=== PATIENT | female | born 1945 | race Caucasian/White ===

== ENCOUNTER 2017-08-08 12:09 | Inpatient (IN) | payer MEDICARE, OTHER ==
[~2017-08-08] VITALS: Ht 165.1 cm; Wt 49.0 kg
[2017-08-08] MEDS ORDERED: CHOL500050 PO (12:17)
[2017-08-08] MEDS ORDERED: UBID100C13 PO (12:17)
[2017-08-08] MEDS ORDERED: CYCL30DR OP (12:17)
[2017-08-08] MEDS ORDERED: OLAN5TAB3 PO (12:17)
[2017-08-08] MEDS ORDERED: OLAN10TA3 PO (12:17)
[2017-08-08] MEDS ORDERED: ASCO500C18 PO (12:17)
--- NOTE | 2017-08-08 12:25 | NUR ---
Dr Felton at the bedside for MSE.
[2017-08-08] MEDS ORDERED: CARB-93 PO (12:52)
[2017-08-08] MEDS ORDERED: LOPE2TAB25 PO (12:52)
[2017-08-08 13:00] LABS: ETHANOL < 3 MG/DL (0-0)
[2017-08-08 13:01] LABS: ALANINE AMINOTRANSFERASE 16 U/L (14-59); ALKALINE PHOSPHATASE 72 U/L (50-136); ASPARTATE AMINOTRANSFERASE 15 U/L (15-37); BILIRUBIN,DIRECT 0.2 mg/dL (0.0-0.2); BILIRUBIN,TOTAL 0.8 mg/dL (0.2-1.0); CARBON DIOXIDE 28 mmol/L (21-32); CHLORIDE 108 mmol/L (98-107); CREATININE 0.9 mg/dL (0.6-1.3); GLUCOSE 111 mg/dL (74-106); POTASSIUM 4.2 mmol/L (3.5-5.1); TOTAL PROTEIN, SERUM 6.4 g/dL (6.4-8.2); UREA NITROGEN, BLOOD 15 mg/dL (7-18)
[2017-08-08 13:04] LABS: ACETAMINOPHEN < 2.0 ug/mL (10-30)
[2017-08-08 13:07] LABS: BASOPHILS % (AUTO) 0.8 % (0.0-2.0); EOSINOPHILS # (AUTO) 0.2 K/uL (0.0-0.7); EOSINOPHILS % (AUTO) 6.2 % (0.0-7.0); HEMATOCRIT 39.6 % (31.2-41.9); HEMOGLOBIN 13.4 g/dL (10.9-14.3); LYMPHOCYTES # (AUTO) 0.5 K/uL (20.0-40.0); LYMPHOCYTES % (AUTO) 15.8 % (20.5-51.5); MEAN CORPUSCULAR HEMOGLOBIN 29.8 uug (24.7-32.8); MEAN CORPUSCULAR HGB CONC 34 g/dL (32.3-35.6); MEAN CORPUSCULAR VOLUME 88.1 fL (75.5-95.3); MONOCYTES # (AUTO) 0.5 K/uL (2.0-10.0); MONOCYTES % (AUTO) 15.9 % (0.0-11.0); NEUTROPHILS # (AUTO) 1.8 K/uL (1.8-8.9); NEUTROPHILS % (AUTO) 61.3 % (38.5-71.5); PLATELET COUNT (AUTO) 151 K/uL (179-408); RED BLOOD CELL COUNT(AUTO) 4.49 MIL/uL (3.63-4.92)
--- NOTE | 2017-08-08 13:16 | NUR ---
Pt is medically cleared by Dr Felton. Lunch provided, moderate appetite.
[2017-08-08 13:37] LABS: BASOPHILS % (MANUAL) 1 % (0-2); EOSINOPHILS % (MANUAL) 9 % (0-8); LYMPHOCYTES % (MANUAL) 13 % (20-40); MONOCYTES % (MANUAL) 18 % (2-10); NEUTROPHILS % (MANUAL) 59 % (42-75)
--- NOTE | 2017-08-08 15:30 | NUR ---
Patient is resting comfortably in bed with eyes closed, MIAN noted.
[2017-08-08 16:15] VITALS: BP 108/65
[2017-08-08] MEDS ORDERED: MAGNESIUM HYDROXIDE 30 ML LIQUID UDC PO PRN (16:30)
[2017-08-08] MEDS ORDERED: MAG HYDROX/AL HYDROX/SIMETH 30 ML LIQUID UDC PO PRN (16:30)
[2017-08-08] MEDS ORDERED: ACETAMINOPHEN 325 MG TABLET PO PRN (16:30)
[2017-08-08] MEDS ORDERED: LORAZEPAM 1 MG TABLET PO PRN (16:30)
[2017-08-08 16:37] LABS: *BILIRUBIN,URIN NEGATIVE (NEGATIVE); *BLOOD, URINE NEGATIVE (NEGATIVE); *CLARITY,URINE CLEAR (CLEAR); *COLOR,URINE YELLOW (YELLOW); *KETONES,URINE NEGATIVE (NEGATIVE); *PROTEIN,URINE 1+ (NEGATIVE); LEUKOCYTE ESTERASE ,URINE 1+ (NEGATIVE); NITRITE, URINE NEGATIVE (NEGATIVE); UGLUCOSE NEGATIVE (NEGATIVE)
[2017-08-08 17:01] LABS: *AMPHETAMINE, URINE NEGATIVE (NEGATIVE); *BARBITURATE, URINE NEGATIVE (NEGATIVE); *CANNABINOID, URINE NEGATIVE (NEGATIVE); *COCCAINE, URINE NEGATIVE (NEGATIVE); *OPIATE, URINE NEGATIVE (NEGATIVE); *PHENCYCLIDINE SCREEN,URINE NEGATIVE (NEGATIVE)
[2017-08-08 17:04] LABS: BACTERIA,URINE FEW /HPF (NONE SEEN); RBC,URINE 0-3 /HPF (0-3); SQUAMOUS EPITHELIAL CELL,UR FEW /HPF (NONE SEEN); WBC,URINE 0-3 /HPF (0-3)
[2017-08-08 20:00] VITALS: BP 114/69
--- NOTE | 2017-08-08 21:00 | NUR ---
RECEIVED PATIENT IN HER BED AWAKE. SHE WAS NOTED A/O X 2. SHE IS ABLE TO WALK WITH STEADY GAIT AND ABLE TO MAKE HER NEEDS KNOW. POOR INSIGHT NOTED. SHE STATED THAT "THE REASON I AM HERE IS BECAUSE I TOOK VICODIN." SHE WAS NOTED WITH DEPRESSED MOOD, BLUNTED AFFECT. WILL CONTINUE TO MONITOR.
[2017-08-08] MEDS ORDERED: Medication Not On Formulary EA (Cholecalciferol (Vitamin D3) (Vitamin D3 CAPSULE) 50,000 PO SCH (23:45)
[2017-08-09 08:00] VITALS: BP 107/65
[2017-08-09] MEDS: NITROFURANTOIN/NITROFURAN MAC 100 MG CAPSULE PO SCH ×2 (09:55→21:01)
[2017-08-09] MEDS: ASCORBIC ACID 500 MG TABLET PO SCH (09:55)
[2017-08-09] MEDS: CARBIDOPA/LEVODOPA 25-100MG TABLET PO SCH ×3 (09:55→17:25)
--- NOTE | 2017-08-09 10:32 | NUR ---
Firearms Report: Information Technology Security Manager completed and submitted [employer] Firearms Report on 08/09/17.
[2017-08-09] MEDS ORDERED: SULFAMETH/TRIMETH 800/160 MG TABLET PO SCH (11:15)
[2017-08-09 16:00] VITALS: BP 108/72
--- NOTE | 2017-08-09 16:02 | NUR ---
Initial Discharge Instructions: Pt resides at home with her business controller [[place] [address]; [phone]]. Per pt, she would like to return there upon discharge. Spoke with pt's friend, Gideon ([phone]) who would like pt to return home with him as well. SW will speak with pt, family, and MD regarding appropriate discharge plans. SW will form a safe and proper discharge for this patient.
--- NOTE | 2017-08-09 18:17 | NUR ---
patient believes shes going home she made a mistake , pt very dis organized and confused redirectable
[2017-08-09 20:39] VITALS: BP 101/57
--- NOTE | 2017-08-09 21:00 | NUR ---
A FELLOW BY THE NAME TESSY CALLED THE UNIT ASKING IF THE PSYCHIATRIST HAS BEEN IN TO TO SEE THE PATIENT BECAUSE HE WANTS THE PSYCHIATRIST TO CALL HIM. INCIDENTALLY, THE DOCTOR HAD JUST WALKED INTO THE UNIT AND WENT TO SEE THE PT IN HER ROOM. THE CALLER WAS TOLD TO CALL BACK IN TEN MINUTES OR WAIT TO BE CALLED. TESSY CALLED BACK AND WAS PUT ON HOLD, WHILE THE STAFF WENT TO THE PATIENT TO OBTAIN HER CONSENT FOR THE DOCTOR TO TALK TO TESSY. THE PT DECLINED TO GIVE CONSENT FOR THE DOCTOR TO TALK TO TESSY, SAYING, "HE IS JUST A MUTUAL FUND SALES AGENT NOT MY FAMILY, HE HAS WRONG PERCEPTION OF WHAT IS GOING ON WITH ME AND THEREFORE, I DON'T WANT HIM OR ANYONE ELSE TALKING TO THE DOCTOR ABOUT ME". TESSY WAS INFORMED THAT THE PT HAS NOT CONSENTED TO THE DOCTOR SPEAKING WITH HIM. TESSY WAS FURIOUS, THREATENED TO REPORT THE STAFF, SAYING THE STAFF HAD NO RIGHT TO ASK THE PT. HE DEMANDED THAT THE STAFF STAY ON THE LINE WHILE HE CONTACTS AN "ANIMAL TREATMENT INVESTIGATOR". THE STAFF EXPLAINED TO TESSY THAT WE CANNOT GO AGAINST THE PT'S WISH/RIGHTS.
--- NOTE | 2017-08-09 21:10 | NUR ---
DR CERNA WAS NOTIFIED OF THE ISSUE OF ETSSY WANTING TO SPEAK TO HIM AND THE PT NOT CONSENTING. DR CERNA ASKED THE PT IF SHE IS CONSENTING BUT SHE STATED NO, DR CERNA ASSURED THE PT THAT HE WILL RESPECT HER WISHES AND EXPLAINED TO THE PT THE NEW MEDICATIONS HE IS STARTING HER ON.
--- NOTE | 2017-08-09 21:20 | NUR ---
GOT A CALL FROM ANOTHER FELLOW BY THE NAME AUREA CHRISTIE ASKING IF THE DOCTOR WAS STILL IN THE UNIT, AND ALSO ASKED IF HE COULD SPEAK TO THE PT, WHEN THE PT WAS TOLD SHE HAD A PHONE CALL FROM AUREA, SHE STATED, "TELL HIM I AM SLEEPING", ADDING THAT SHE DOES NOT WANT ANY ONE SPEAKING TO THE DOCTOR BECAUSE THEY HAVE WRONG PERCEPTION OF WHAT IS GOING ON. WILL CONTINUE TO MONITOR CLOSELY.
[2017-08-09] MEDS: risperiDONE 0.5 MG TABLET PO SCH (22:00)
[2017-08-09] MEDS ORDERED: risperiDONE 0.5 MG TABLET ONE (22:06)
[2017-08-10 07:30] VITALS: BP 97/55
[2017-08-10] MEDS: ASCORBIC ACID 500 MG TABLET PO SCH (08:52)
[2017-08-10] MEDS: CARBIDOPA/LEVODOPA 25-100MG TABLET PO SCH ×3 (08:52→17:26)
[2017-08-10] MEDS: NITROFURANTOIN/NITROFURAN MAC 100 MG CAPSULE PO SCH ×2 (08:52→20:05)
[2017-08-10] MEDS: risperiDONE 0.5 MG TABLET PO SCH ×2 (08:52→20:05)
--- NOTE | 2017-08-10 09:05 | NUR ---
Roller Leveler: Spoke with pt to discuss discharge planning and her wishes for contacting her support system. Patient did not give consent for SW to speak with Gidoen (pt's e business project manager) or Natan (pt's ex-) while she is in the hospital. Pt stated, "They are very overwhelming and treat me like I'm their child while I am in the hospital...They do not understand what is going on." SW will continue to speak with pt regarding safe and appropriate discharge plans.
--- NOTE | 2017-08-10 14:51 | NUR ---
Director Professional Services: At 1420, received call from pt's business area manager, Gideon ([phone]). He expressed anger and frustration about "lack of communication from the staff at this establishment" about the patient and her care and about his inability to speak with Dr. Damon. This va underwriter spoke with Gideon at length about boundaries regarding disclosure of pt information when she has not given consent, and that the hospital will not violate the patient's rights. Gideon was informed that he will be notified when patient is ready for discharge, as patient plans to return home with him. Gideon verbalized understanding. Gideon expressed concern about patient's medications "causing her to have hallucinations in the past." He also stated that while the patient was receiving care at [facility], her attending psychiatrist and PCP "found a medication that would not make her hallucinate," however, he could not remember which medication it was. Gideon requested this va underwriter to notify Dr. Damon about his concerns. This va underwriter assured him that pt is in safe environment and that her medication will be monitored. Plan: Orange Peel Operator will inform Dr. Damon about caller's concerns. SW will continue to collaborate with and Gideon regarding discharge date.
[2017-08-10 15:20] VITALS: BP 104/61
--- NOTE | 2017-08-10 21:00 | NUR ---
RECEIVED PATIENT IN HER ROOM IN BED. SHE WAS NOTED A/O X 3, DEPRESSED MOOD, BLUNTED AFFECT. ABLE TO AMBULATE WITH STEADY GAIT AND ABLE TO MAKE HER NEEDS KNOW. INITIALLY, SHE REFUSED TO TAKE HER PSYCH MEDICATION, STATING THAT SHE DOES NOT NEED IT. PT WAS REASSURED AND WAS ABLE TO COMPLY WITH MEDICATION REGIMENT. WILL CONTINUE TO MONITOR CLOSELY.
[2017-08-10 21:18] VITALS: BP 125/65
--- NOTE | 2017-08-10 21:30 | NUR ---
PATIENT WAS OBSERVED TALKING ON THE PHONE (THE FACILITY PHONE) IN THE DAY ROOM.
--- NOTE | 2017-08-10 23:00 | NUR ---
PATIENT WAS NOTED SITTING IN THE TOILET WITH ALL HER CLOTHES ON AND THE LIGHT OFF. WHEN ASKED WHAT SHE WAS DOING THERE, SHE STATED THAT, "I AM FINE, I AM GOING TO STAY HERE. I LIKE YOU BUT YOU ARE NOT MY FRIEND ANYMORE." SHE WAS REDIRECTED AND THIS PRESS OPERATOR APPRENTICE TOLD HER THAT I WAS NOT HER FRIEND, BUT HER NURSE. SHE THEN STATED, "YOU ARE ALL TELLING MY DOCTOR THAT I AM NOT DOING GOOD, THAT IS WHY HE PUT ME ON A 14 DAYS HOLD". PT WAS REASSURED. WILL CONTINUE TO MONITOR CLOSELY.
--- NOTE | 2017-08-10 23:21 | NUR ---
At approx. 2200, received call from pt's business advisor, Gideon ([phone]). He stated that he was upset because patient was put on a [address] Damon. she stated that that was no reason for the hold for he feels patient is doing "better". he also expressed anger about patient been moved to a different room stating that patient told him, via phone call, that her new roommate has "herpes". This specification writer spoke with Gideon at length about patient's medical privacy, about 14days holds and room accommodation. Gideon verbalized understanding.
[2017-08-11 06:36] LABS: BASOPHILS % (AUTO) 0.8 % (0.0-2.0); EOSINOPHILS # (AUTO) 0.2 K/uL (0.0-0.7); EOSINOPHILS % (AUTO) 6.2 % (0.0-7.0); HEMATOCRIT 37.5 % (31.2-41.9); HEMOGLOBIN 12.6 g/dL (10.9-14.3); LYMPHOCYTES # (AUTO) 0.9 K/uL (20.0-40.0); LYMPHOCYTES % (AUTO) 22.8 % (20.5-51.5); MEAN CORPUSCULAR HEMOGLOBIN 29.8 uug (24.7-32.8); MEAN CORPUSCULAR HGB CONC 34 g/dL (32.3-35.6); MEAN CORPUSCULAR VOLUME 88.5 fL (75.5-95.3); MONOCYTES # (AUTO) 0.6 K/uL (2.0-10.0); MONOCYTES % (AUTO) 15.5 % (0.0-11.0); NEUTROPHILS # (AUTO) 2.2 K/uL (1.8-8.9); NEUTROPHILS % (AUTO) 54.7 % (38.5-71.5); PLATELET COUNT (AUTO) 157 K/uL (179-408); RED BLOOD CELL COUNT(AUTO) 4.24 MIL/uL (3.63-4.92)
[2017-08-11 06:52] LABS: BILIRUBIN,TOTAL 0.6 mg/dL (0.2-1.0); CREATININE 0.9 mg/dL (0.6-1.3); MAGNESIUM 2.3 mg/dL (1.8-2.4); PHOSPHOROUS 4.3 mg/dL (2.5-4.9); POTASSIUM 3.8 mmol/L (3.5-5.1); TOTAL PROTEIN, SERUM 6.1 g/dL (6.4-8.2)
[2017-08-11 07:05] LABS: THYROID STIMULATING HORMONE 1.538 mIU/mL (0.358-3.740)
[2017-08-11 08:21] VITALS: BP 100/61
[2017-08-11] MEDS: ASCORBIC ACID 500 MG TABLET PO SCH (08:23)
[2017-08-11] MEDS: NITROFURANTOIN/NITROFURAN MAC 100 MG CAPSULE PO SCH ×2 (08:23→20:01)
[2017-08-11] MEDS: CARBIDOPA/LEVODOPA 25-100MG TABLET PO SCH ×3 (08:23→17:54)
[2017-08-11] MEDS: risperiDONE 0.5 MG TABLET PO SCH ×2 (08:23→20:01)
[2017-08-11 09:51] LABS: EOSINOPHILS % (MANUAL) 2 % (0-8); LYMPHOCYTES % (MANUAL) 22 % (20-40); MONOCYTES % (MANUAL) 13 % (2-10); NEUTROPHILS % (MANUAL) 63 % (42-75)
--- NOTE | 2017-08-11 12:08 | NUR ---
Gps/Seasonal Customer Service Associate- Spoked to patients' friend Iesha, she verbalized concerns regarding patient do not have relatives here is [place] they are all [place] , informed unable to give information about treatment and progress. Per Iesha patient , talks about [employer], and she is worried that they area coming for us. Patient attended group therapy,compliant with her routine medis.
[2017-08-11 15:11] VITALS: BP 94/51
[2017-08-11 20:18] VITALS: BP 105/58
[2017-08-12] MEDS: TEMAZEPAM 7.5 MG CAPSULE PO PRN (00:25)
--- NOTE | 2017-08-12 06:42 | NUR ---
GPS: REMAIN CALM AND COOPERATIVE WITH MEDICATIONS AND CARE. NO AGITATION NOTED AT THIS TIME.SLEPT 7 HRS THROUGH THE NIGHT.CONTINUE PLAN OF CARE.
[2017-08-12 07:30] VITALS: BP 112/62
--- NOTE | 2017-08-12 07:30 | NUR ---
RECEIVED PATIENT IN HER ROOM IN BED. SHE WAS NOTED A/O X 3, DEPRESSED MOOD, BLUNTED AFFECT. ABLE TO AMBULATE WITH STEADY GAIT AND ABLE TO MAKE HER NEEDS KNOW. WILL CONTINUE TO MONITOR CLOSELY.
[2017-08-12] MEDS: ASCORBIC ACID 500 MG TABLET PO SCH (08:08)
[2017-08-12] MEDS: CARBIDOPA/LEVODOPA 25-100MG TABLET PO SCH ×3 (08:08→16:04)
[2017-08-12] MEDS: risperiDONE 0.5 MG TABLET PO SCH ×2 (08:08→20:55)
[2017-08-12] MEDS: NITROFURANTOIN/NITROFURAN MAC 100 MG CAPSULE PO SCH ×3 (08:09→20:55)
[2017-08-12 15:16] VITALS: BP 94/64
--- NOTE | 2017-08-13 06:17 | NUR ---
GPS:GPS: REMAIN CALM AND COOPERATIVE WITH MEDICATIONS AND CARE. NO AGITATION NOTED AT THIS TIME.SLEPT 8 HRS THROUGH THE NIGHT.CONTINUE PLAN OF CARE.
[2017-08-13 07:30] VITALS: BP 113/71
[2017-08-13] MEDS: risperiDONE 0.5 MG TABLET PO SCH ×2 (08:37→20:50)
[2017-08-13] MEDS: CARBIDOPA/LEVODOPA 25-100MG TABLET PO SCH ×3 (08:38→16:53)
[2017-08-13] MEDS: ASCORBIC ACID 500 MG TABLET PO SCH (08:38)
[2017-08-13] MEDS: NITROFURANTOIN/NITROFURAN MAC 100 MG CAPSULE PO SCH ×2 (08:38→20:49)
[2017-08-13 16:24] VITALS: BP 116/77
[2017-08-13 20:27] VITALS: BP 128/59
[2017-08-13] MEDS: TEMAZEPAM 7.5 MG CAPSULE PO PRN (20:50)
[2017-08-14 07:30] VITALS: BP 95/42
[2017-08-14 07:43] LABS: BASOPHILS % (AUTO) 0.9 % (0.0-2.0); EOSINOPHILS # (AUTO) 0.1 K/uL (0.0-0.7); EOSINOPHILS % (AUTO) 4.2 % (0.0-7.0); HEMATOCRIT 38.6 % (31.2-41.9); HEMOGLOBIN 12.7 g/dL (10.9-14.3); LYMPHOCYTES # (AUTO) 0.9 K/uL (20.0-40.0); LYMPHOCYTES % (AUTO) 26.7 % (20.5-51.5); MEAN CORPUSCULAR HEMOGLOBIN 29.3 uug (24.7-32.8); MEAN CORPUSCULAR HGB CONC 33 g/dL (32.3-35.6); MONOCYTES # (AUTO) 0.5 K/uL (2.0-10.0); MONOCYTES % (AUTO) 15.1 % (0.0-11.0); NEUTROPHILS # (AUTO) 1.8 K/uL (1.8-8.9); NEUTROPHILS % (AUTO) 53.1 % (38.5-71.5); PLATELET COUNT (AUTO) 149 K/uL (179-408); RED BLOOD CELL COUNT(AUTO) 4.34 MIL/uL (3.63-4.92); WHITE BLOOD COUNT (AUTO) 3.4 K/uL (3.8-11.8)
[2017-08-14 07:52] LABS: BILIRUBIN,TOTAL 1.1 mg/dL (0.2-1.0); CREATININE 0.6 mg/dL (0.6-1.3); MAGNESIUM 2.2 mg/dL (1.8-2.4); PHOSPHOROUS 3.6 mg/dL (2.5-4.9); POTASSIUM 3.8 mmol/L (3.5-5.1); TOTAL PROTEIN, SERUM 6.2 g/dL (6.4-8.2)
[2017-08-14] MEDS: CARBIDOPA/LEVODOPA 25-100MG TABLET PO SCH ×2 (08:21→12:13)
[2017-08-14] MEDS: ASCORBIC ACID 500 MG TABLET PO SCH (08:21)
[2017-08-14] MEDS: risperiDONE 0.5 MG TABLET PO SCH (08:21)
[2017-08-14] MEDS: NITROFURANTOIN/NITROFURAN MAC 100 MG CAPSULE PO SCH (08:21)
[2017-08-14 09:45] LABS: EOSINOPHILS % (MANUAL) 5 % (0-8); LYMPHOCYTES % (MANUAL) 32 % (20-40); MONOCYTES % (MANUAL) 8 % (2-10); NEUTROPHILS % (MANUAL) 55 % (42-75)
--- NOTE | 2017-08-14 11:29 | NUR ---
DC Note: Patient will be discharged home [[address] [address]; [phone]] via private transportation at 1pm. Spoke with patients friend, Luis Fernando Antonio ([phone]) who has agreed to provide transportation and is agreeable with discharge plans. Spoke with patients business systems administrator ([phone]) with whom she will be living, and he is aware and agreeable with discharge plans. Patient is aware with discharge plans. Patient will follow up with her Primary Care Physician Dr. Demetrio Robison [[id number], [place] [address]; ]. Patient was also given referrals for [facility] [[phone]]. Patient was also given a list of Medicare Psychiatrist Referrals.
--- NOTE | 2017-08-14 11:51 | NUR ---
CALLED IN PRESCRIPTIONS FOR PT IN HER [facility] ([phone]) AND SPOKE TO PHARMACIST DANYEL.
--- NOTE | 2017-08-14 13:40 | NUR ---
Patient will be discharged home via private transportation. SW spoke with patient's ex- Faby . Patient will follow up with his objects conservator Dr. Morro Hickey [[address], [place] [address]; ]. Patient has an appointment scheduled with psychiatrist Dr. Deedee Haines [phone]] on 08/22/17 at 11am. Patient was provided additional mental health referrals to [facility] and [facility] . Patient was given a brief substance abuse intervention. Patient will discuss smoking cessation and address substance abuse dependency at his psychiatry appointment. Patient was also provided smoking cessation referrals to [employer] [facility] 800-LUNG[facility] and [employer] [facility] [phone]. discharge instruction given to pt all personal belonging return to patient.
== END 2017-08-14 14:02 | disposition home or self-care (01) | DRG 885 ==
LOC: ER 12:12 → GPS 14:29
PROVIDERS: ADMIT Psychiatry & Neurology Psychiatry; ATTEND Internal Medicine
DX: F23 Brief psychotic disorder (principal); B95.2 Enterococcus as the cause of diseases classified elsewhere; D69.6 Thrombocytopenia, unspecified; G20 Parkinson's disease; N39.0 Urinary tract infection, site not specified; R17 Unspecified jaundice; K52.9 Noninfective gastroenteritis and colitis, unspecified; Z85.828 Personal history of other malignant neoplasm of skin; Z96.643 Presence of artificial hip joint, bilateral; Z87.01 Personal history of pneumonia (recurrent); M50.30 Other cervical disc degeneration, unspecified cervical region; M51.36 Other intervertebral disc degeneration, lumbar region; D72.819 Decreased white blood cell count, unspecified; Z98.49 Cataract extraction status, unspecified eye; I10 Essential (primary) hypertension
CPT/HCPCS: 36415; 80307; 83735; 84100; 84443; 85025; 87077; 87086; 93005; A4663; G0480; G0480-TC